=== PATIENT | female | born 1960 | race Caucasian/White ===

== ENCOUNTER 2016-08-25 08:13 | Emergency (ER) | payer MEDICARE, MEDICAID ==
--- NOTE | 2016-09-04 18:03 | ER ---
ADMIT: 08/25/2016 RM/LOC: ER [facility] MR#: [id number] [address] [address] [place] [address] Emergency Room Report SEX: F AGE: 55 : 1960 DATE: 08/25/2016 ADDENDUM: CHIEF COMPLAINT: Dizziness. HISTORY OF PRESENT ILLNESS: This is a 55-year-old female who she said she woke up, and she sat up, just felt like her hands were sweaty, felt very lightheaded, felt like her head was floating. She then had her friend or family member bring her a couple glasses of orange juice. She sat there for a while. She generally feels much better, so she came into the emergency room. While here, she actually has perked up a little bit. We gave her a sandwich, she feels quite a bit better. Orthostatics were checked, which are negative. Again, she feels better. I am sending her home. I did tell her to buy some strips to check her glucose in case she ever has these symptoms again. Continue all her medications and follow up if worsen. CLINICAL IMPRESSION: Near syncope-dizziness questionable secondary to hypoglycemic event. VINNY Guzman / Jonathan Landin MD / alexyl JOB #: [id number] CC: Jonathan Landin MD, Attending Physician
== END 2016-08-25 10:40 | disposition home or self-care (01) ==
LOC: ER 08:13
DX: R55 Syncope and collapse (principal); E11.9 Type 2 diabetes mellitus without complications; E03.9 Hypothyroidism, unspecified; Z90.710 Acquired absence of both cervix and uterus; Z88.1 Allergy status to other antibiotic agents

== ENCOUNTER → 2016-09-27 | Outpatient (CLI) | payer MEDICARE, MEDICAID | END | disposition home or self-care (01) | LOC: RAD.S 10:32 | DX: Z12.31 Encounter for screening mammogram for malignant neoplasm of breast (principal); Z80.3 Family history of malignant neoplasm of breast ==

== ENCOUNTER 2016-12-19 19:03 | Emergency (ER) | payer MEDICARE, MEDICAID ==
--- NOTE | 2016-12-20 23:41 | ER ---
ADMIT: 12/19/2016 RM/LOC: ER [facility] MR#: [id number] [id number] HARSH FONSECA [address] [place] [address] Emergency Room Report SEX: F AGE: 56 : 1960 DATE: 12/19/2016 TIME: 1903 hours. Please refer to my T-sheet for complete H and P. HISTORY OF PRESENT ILLNESS: Briefly, the patient is a 56-year-old, comes in with abdominal pain and bloating. It has been going on since last night. It is kind of right-sided. PAST SURGICAL HISTORY: She has a long history of multiple surgeries on her abdomen, gastric bypass, Mary-en-Y, cholecystectomy, multiple plastic surgeries. She is also diabetic. She also had her appendix out. PHYSICAL EXAMINATION: VITAL SIGNS: Stable. She is afebrile. HEENT: Grossly normal. ABDOMEN: Diffusely tender a little bit near McBurney's point. No rebound or guarding. Does not localize. EMERGENCY DEPARTMENT COURSE: CBC normal except white count 4.3. Chemistries normal. UA normal. CT of abdomen and pelvis revealed no evidence of appendicitis. We treated the patient in the Emergency Department with Zofran, a liter of saline, and gave her some morphine. She was feeling much better. I had a long discussion, she was ready for discharge. ASSESSMENT: 1. Abdominal pain with multiple procedures on the patient's abdomen in the past. 2. Obesity. PLAN: Follow up with Dr. Madrigal this week. Return if worse. Continue medications. Jonathan Landin MD/ paulo JOB #: [id number] CC: Gene Perez MD, Attending Physician Saleem Madrigal MD, Family Physician
== END 2016-12-19 22:00 | disposition home or self-care (01) ==
LOC: ER 19:03
DX: R10.9 Unspecified abdominal pain (principal); E66.9 Obesity, unspecified; E11.9 Type 2 diabetes mellitus without complications; I10 Essential (primary) hypertension; Z90.710 Acquired absence of both cervix and uterus; Z90.49 Acquired absence of other specified parts of digestive tract